=== PATIENT | male | born 1975 | race Caucasian/White ===

== ENCOUNTER 2019-10-06 21:55 | Emergency (ER) | payer BC, SELFPAY ==
--- NOTE | 2019-10-06 21:59 | ED.EYEPROB ---
HPI - Eye Problem General Chief complaint: Eye Problems Stated complaint: something in his right eye Time Seen by Provider: 10/06/19 21:59 Source: patient and family Mode of arrival: Ambulatory Limitations: no limitations History of Present Illness HPI Narrative: 44-year-old male nonsmoker with history of hypertension and hyperlipidemia presents with his in the chief complaint of a foreign body in his right eye. He was grinding metal while wearing safety glasses earlier this afternoon when he felt something enter his eye. He has no pain but does have some irritation and drainage. He has tried multiple attempts at irrigating at home though unsuccessfully. He does not know when his last tetanus shot was. He does not wear corrective glasses or contacts. He denies any blurred or double vision chief complaint: foreign body Onset (ago): hour(s) Onset description: sudden Duration: constant Location: right eye Eye Symptoms: foreign body sensation Place: home Mechanism: direct trauma and occurred while hammering/grinding Severity: mild Associated symptoms: none Treatments Prior to Arrival: irrigated eye Related Data Patient tetanus UTD: No Home Medications Medication Instructions Recorded Confirmed aspirin [Aspir-81] 81 mg PO DAILY 10/06/19 10/06/19 atorvastatin 10 mg PO DAILY 10/06/19 10/06/19 losartan 50 mg PO DAILY 10/06/19 10/06/19 Allergies Allergy/AdvReac Type Severity Reaction Status Date / Time Sulfa (Sulfonamide Allergy Swelling Verified 10/06/19 22:05 Antibiotics) of Lip/Tongue/Throat Review of Systems Constitutional Constitutional: Denies chills, Denies fatigue, Denies fever(s), Denies frequent falls, Denies lethargy and Denies weakness Eyes Eyes: Denies change in vision, Denies eye discharge, Reports irritation and Denies loss of vision ENT Ears, Nose, Mouth, and Throat: Denies change in voice, Denies dizziness, Denies neck pain, Denies sore throat and Denies throat swelling Cardiovascular Cardiovascular: Denies chest pain, Denies irregular heart rhythm, Denies lightheadedness, Denies palpitations, Denies dyspnea, Denies dyspnea on exertion and Denies orthopnea Respiratory Respiratory: Denies cough, Denies dyspnea, Denies dyspnea on exertion and Denies wheezing Gastrointestinal Gastrointestinal: Denies abdominal pain, Denies change in bowel habits, Denies diarrhea, Denies nausea and Denies vomiting Musculoskeletal Musculoskeletal: Denies neck pain and Denies numbness Integumentary/Breasts Skin/Breast: Denies pruritus, Denies erythema, Denies rash and Denies wounds Neurologic Neurologic: Denies behavioral changes, Denies confusion, Denies dizziness, Denies frequent falls, Denies loss of vision, Denies numbness and Denies weakness Psychiatric Psychiatric: Denies anxiety, Denies behavioral changes, Denies confusion, Denies depression, Denies homicidal ideation and Denies suicidal ideation Endocrine Endocrine: Denies fatigue, Denies flushing and Denies palpitations Hematologic/Lymphatic Hematologic/Lymphatic: Denies easy bruising Allergic/Immunologic Allergic/Immunologic: Denies urticaria, Denies throat swelling and Denies wheezing Patient History Social History Smoking Status: Never smoker Smoking Status: Never smoker alcohol intake frequency: 0-2 drinks per day Substance Use Type: does not use Exam Narrative Exam Narrative: GENERAL: [44] year old patient appears stated age. Well-nourished, well-developed patient, in mild distress. HEAD: Atraumatic. Normocephalic. EYES: Foreign body visualized with use of Wood's lamp at the 5 o'clock position overlying the iris. Upper lid mike id and no additional foreign body noted. Patient had a complete resolution of symptoms with use of proparacaine. Unable to remove metallic foreign body with cotton swab, easily removed with blunt needle. No rust ring noted. Fluorescein used with UV lamp and a small corneal abrasion noted underlying the location of where the foreign body was. No other uptake appreciated. Pupils equal round and reactive. Extraocular motions intact. No scleral icterus. No injection or drainage. ENT: Nose without bleeding, purulent drainage. Throat without erythema, tonsillar hypertrophy or exudate. Airway patent. NECK: Trachea midline. Non tender CARDIOVASCULAR: Regular rate and rhythm without murmurs, gallops, or rubs. RESPIRATORY: Clear to auscultation. Breath sounds equal bilaterally. No wheezes, rales, or rhonchi. GASTROINTESTINAL: Abdomen soft, non-tender, nondistended. EXTREMITIES: No edema or joint tenderness. BACK: Nontender without deformity or crepitance. No flank tenderness. NEURO: AOx3. SKIN: No rash or erythema of visible areas Initial Vital Signs Initial Vital Signs: Vital Signs Temperature 98.2 F 10/06/19 22:02 Pulse Rate 78 10/06/19 22:02 Respiratory Rate 16 10/06/19 22:02 Blood Pressure 157/67 H 10/06/19 22:02 Pulse Oximetry 98 10/06/19 22:02 Course Orders Ordered: Discontinued Medications Diphtheria/Tetanus/Acell Pertussis (Adacel) 0.5 ml IM .ONCE ONE Stop: 10/06/19 22:37 Last Admin: 10/06/19 22:48 Dose: 0.5 ml Documented by: MALATHI Fluorescein Sodium (Ful-Marina) 1 mg EYE-RIGHT NOW ONE Stop: 10/06/19 22:00 Last Admin: 10/06/19 22:10 Dose: 1 mg Documented by: MALATHI Ofloxacin (Ocuflox) 1 bottle MISC SEEINSTR ONE Stop: 10/06/19 22:38 Last Admin: 10/06/19 22:47 Dose: 1 drop Documented by: MALATHI Proparacaine HCl (Parcaine 0.5% Ophth Jazmín) 1 drops EYE-RIGHT NOW ONE Stop: 10/06/19 22:00 Last Admin: 10/06/19 22:10 Dose: 1 drop Documented by: MALATHI Vital Signs Vital signs: Vital Signs - 8 hr 10/06/19 22:02 Temperature 98.2 F Pulse Rate 78 Respiratory Rate 16 Blood Pressure 157/67 H Pulse Oximetry 98 Discharge Plan Departure Clinical Impression: Corneal abrasion Qualifiers: Encounter type: initial encounter Laterality: right Qualified Code(s): S05.01XA - Injury of conjunctiva and corneal abrasion without foreign body, right eye, initial encounter Foreign body in eye Qualifiers: Encounter type: initial encounter Laterality: right Qualified Code(s): T15.91XA - Foreign body on external eye, part unspecified, right eye, initial encounter Instructions: DI for Corneal Foreign Body-Eye Activity Restrictions/Additional Instructions: *You have been diagnosed with [metallic foreign body right eye with small corneal abrasion] *What to do: *Take medications as directed *Follow up with your africana studies professor in 2-3 days, call for an appointment. Let them know you were seen in the Emergency Department and that we ask that you be seen in follow up *Return to ER if you should have any new, worsening or concerning symptoms Prescriptions: No Action atorvastatin 10 mg tablet 10 mg PO DAILY RF: 0 losartan 50 mg tablet 50 mg PO DAILY RF: 0 aspirin [Aspir-81] 81 mg Tablet,Delayed Release (Dr/Ec) 81 mg PO DAILY RF: 0 Referrals: Jaydon Bolivar MD [Primary Care Provider] -
[2019-10-06 22:02] VITALS: BP 157/67; PULSE 78; RESP 16; TEMP 36.8; O2SAT 98
[2019-10-06] MEDS: PROPARACAINE 0.5% OPHTH SOL 1 DROPS EYE-RIGHT (22:10)
[2019-10-06] MEDS: FLUORESCEIN 1 MG STRIP EYE-RIGHT (22:10)
[2019-10-06] MEDS: OFLOXACIN 0.3% OPHTH PREPACK 1 BOTTLE MISC (22:47)
[2019-10-06] MEDS: TET,DIPH,PERTUSS(ACELL),VAC/PF 0.5 ML SYRINGE IM (22:48)
== END 2019-10-06 22:55 | disposition home or self-care (01) ==
PROVIDERS: Emergency Provider Emergency Medicine; Family Provider Family Medicine; PCP Family Medicine
DX: S05.01XA Injury of conjunctiva and corneal abrasion without foreign body, right eye, initial encounter (principal); T15.91XA Foreign body on external eye, part unspecified, right eye, initial encounter; Z23 Encounter for immunization
CPT/HCPCS: 90471; 99283; 90715

== ENCOUNTER → 2020-02-12 08:55 | Outpatient (CLI) | payer BC, SELFPAY ==
[2020-02-12 10:36] LABS: Add Manual Diff / Slide Review NO; Basophils Absolute Auto 0 /uL (0-100); Basophils Percent Auto 0.4 % (0-2); Eosinophils Absolute Auto 100 /uL (0-450); Eosinophils Percent Auto 1.9 % (2-4); Hematocrit 42.6 % (41-53); Hemoglobin 14.6 g/dL (13.5-17.5); Lymphocytes Absolute Auto 1200 /uL (1100-4500); Lymphocytes Percent Auto 23.5 % (25-40); Mean Corpuscular HGB Conc 34.2 % (30-36); Mean Corpuscular Hemoglobin 30.3 PG (26-34); Mean Corpuscular Volume 88.7 fL (80-100); Monocytes Absolute Auto 400 /uL (0-900); Monocytes Percent Auto 8.4 % (3-14); Neutrophils Absolute Auto 3300 /uL (1500-7000); Neutrophils Percent Auto 65.8 % (50-75); Platelet Count 190 X10^3/uL (150-400)
[2020-02-12 10:42] LABS: Alanine Aminotransferase 29 IU/L (<50); Albumin 4.6 g/dL (3.5-5.0); Albumin Globulin Ratio 1.4 (1.0-2.8); Alkaline Phosphatase 53 U/L (38-126); Aspartate Aminotransferase 28 IU/L (17-59); BUN Creatinine Ratio 16.9 (6-22); Bilirubin Total 0.9 mg/dL (0.2-1.3); Blood Urea Nitrogen 14 mg/dL (9-20); Calcium 9.1 mg/dL (8.4-10.2); Carbon Dioxide 31 mmol/L (22-32); Chloride 104 mmol/L (98-107); Cholesterol 171 mg/dL (140-199); Estimated Glomerular Filt Rate > 60.0 mL/min (>60); Globulin 3.2 g/dL (1.7-4.1); Glucose 100 mg/dL (70-100); HDL Cholesterol 31 mg/dL (40-60); HEMOLYSIS < 15 (0-50); LDL Cholesterol Calculated 125 mg/dL (<100); Potassium 4.3 mmol/L (3.4-5.1); Sodium 141 mmol/L (137-145); Total Protein 7.8 g/dL (6.3-8.2); Triglycerides 76 mg/dL (35-150)
[2020-02-12 11:18] LABS: Thyroid Stimulating Hormone 1.25 uIU/mL (0.47-4.68)
== END ==
PROVIDERS: Family Provider Family Medicine; PCP Student in an Organized Health Care Education/Training Program; Referring Provider Student in an Organized Health Care Education/Training Program; Visit Provider Student in an Organized Health Care Education/Training Program
DX: Z00.00 Encounter for general adult medical examination without abnormal findings (principal); E78.5 Hyperlipidemia, unspecified; I10 Essential (primary) hypertension
CPT/HCPCS: 36415; 80053; 80061; 84443; 85025

== ENCOUNTER 2022-10-08 07:48 | Day surgery (SDC) | payer BC, SELFPAY ==
--- NOTE | 2022-10-08 | PATH_ITS ---
[facility] Accession Number: [id number] No. of containers..02 Tissue . 01 Material submitted: . PART A: colon - CECAL POLYP X2 PART B: rectum - RECTAL POLYP . 01 Diagnosis: A. Cecal Polyps: Sessile serrated adenoma x1. Tubular adenoma x1. . B. Rectal Polyp: Hyperplastic polyp. MRV 10/15/2022 1329 Local . 01 Electronically signed: . Gael Sharpe MD, PhD, Pathologist NPI- [id number] . 01 Gross description: . Part A: CECAL POLYP X2: Received in formalin are 3 fragment(s) of dangelo, soft tissue measuring 0.3 x 0.2 x 0.2 cm to 0.2 x 0.2 x 0.1 cm submitted entirely in 1 cassette(s) Part B: RECTAL POLYP: Received in formalin are 2 fragment(s) of dangelo, soft tissue measuring 0.3 x 0.3 x 0.2 cm to 0.3 x 0.2 x 0.1 cm submitted entirely in 1 cassette(s) /[facility] 10/13/2022 1555 Local . 01 Pathologist provided ICD-10: D12.0, K62.1 . 01 CPT . 883371, 860909 Specimen Comment: A courtesy copy of this report has been sent to [facility] Performed at: 01 [facility] [address] [place] [address], [place], [place] [id number] MD Biju Dunn MD Phone: [phone]
[2022-10-08 08:09] VITALS: BP 151/89; PULSE 80; RESP 17; TEMP 36.2; O2SAT 97; BMI 36.9
[2022-10-08] MEDS: LACTATED RINGERS 1,000 ML 100 ML IV (08:16)
--- NOTE | 2022-10-08 08:38 | PM.HP.1 ---
History of Present Illness History of Present Illness Date Patient Seen: 10/08/22 Time Patient Seen: 08:38 [place] [facility] [place]ative: 47 yo male presents today for his 1st screening colonoscopy. He has no family history of colon cancer. He does have 2 brothers who have had polyps and his older brother in particular had so many polyps that his doctor advised him to let his siblings know about that. He otherwise is having no concerning symptoms no bleeding no change in bowel habits. PFS Surgical History (Updated 10/08/22 @ 08:08 by Dilip Roberson RN) S/P hernia surgery Social History household members: spouse Smoking Status: Never smoker Meds Home Medications and Allergies Home Medications Medication Instructions Recorded Confirmed Type atorvastatin 10 mg tablet 10 mg PO DAILY 10/06/19 10/08/22 History losartan 50 mg tablet 50 mg PO DAILY 10/06/19 10/08/22 History Allergies Allergy/AdvReac Type Severity Reaction Status Date / Time Sulfa (Sulfonamide Allergy Swelling Verified 10/06/19 22:05 Antibiotics) of Lip/Tongue/Throat Exam Vital Signs (past 8 hours): - 10/08/22 08:09 Temperature 97.2 F L Pulse Rate 80 Respiratory Rate 17 Blood Pressure 151/89 H Pulse Oximetry 97 Oxygen Delivery Method Room Air Oxygen Delivery Method Room Air Const General: cooperative, healthy appearing and comfortable HENNV Head: normal to inspection Eyes General: appearance normal, both eyes and all related structures Resp Effort & Inspection: normal respiratory effort and able to speak in complete sentences Cardio Pulses: radial pulses present GI Palpation: soft and No tender Other: BMI 36 Assessment & Plan Assessment and plan (1) Family history of polyps in the colon: Status: Acute (2) Screening for colon cancer: Status: Acute Assessment & Plan narrative: Presents today for screening colonoscopy I discussed the risks benefits and alternatives including but not limited to perforation of the colon and an incomplete exam he fully understands these risks and would like to proceed.
[2022-10-08 09:27] VITALS: BP 130/85; PULSE 80; RESP 16; TEMP 36.1; O2SAT 93
--- NOTE | 2022-10-08 09:30 | P.OP.COLON_ITS ---
Operative Date/Time/Diagnoses Date of procedure: 10/08/22 Time of procedure: 09:31 Pre-op diagnosis: Family history of polyps, screening for colon cancer Post-op diagnosis: same Procedure & Clinicians Study performed: Colonoscopy and biopsy Same procedure as scheduled: Yes Indications: Family history of polyps and screening for colon cancer Surgeon: Olena Ochoa Procedure Notes Procedure in detail: Patient was taken to the endoscopy suite and placed in a left lateral decubitus position. A time-out was performed. With the help of anesthesiologist conscious sedation was induced and maintained throughout procedure. A digital rectal exam was performed there were no masses or strictures. The prostate gland was smooth normal. A colonoscope was introduced into the anal canal and advanced through to the cecum. The prep was excellent [place] bowel prep score of 3. A photograph of the appendiceal orifice was obtained. There were multiple large diverticula in the sigmoid colon. And a few small right-sided diverticula as well. There were 2 small polyps in the cecum. A photograph was obtained of 1 of the 2 cecal polyps. Both were removed in totality. There was a 3rd and final small polyp in the rectum which was biopsied and removed with Jumbo forceps as well. The scope was then retroflexed and the internal hemorrhoid piles appeared normal. A photograph was obtained. Total withdrawal time was 19 minutes. Findings: divertiulosis and polyp(s) (X3 all small) Specimen(s): other (1. Cecal polyps x2 2. Rectal) Complications: none Post-procedure Plan for aftercare: Follow-up recommendation will be based on the pathology of the polyps. If you have 3 tubular adenomas a 5 year follow-up is recommended, where as if all of polyps are hyperplastic or benign a 10 year follow-up is appropriate. Therefore I anticipate your follow-up recommendation will be between 5-10 years. You will receive a letter with the final pathology and final follow-up recommendation and please do not hesitate to call the office if there are any questions concerns.
[2022-10-08 09:32] VITALS: BP 144/98; PULSE 83; RESP 18; O2SAT 94
[2022-10-08 09:37] VITALS: BP 129/94; PULSE 84; RESP 16; O2SAT 96
[2022-10-08 09:42] VITALS: BP 127/89; PULSE 80; RESP 18; TEMP 36.3; O2SAT 97
[2022-10-08 09:47] VITALS: BP 133/99; PULSE 77; RESP 18; O2SAT 97
== END 2022-10-08 10:15 | disposition home or self-care (01) ==
PROVIDERS: PCP Family Medicine; Referring Provider Surgery; Visit Provider Surgery
PROC: 0DJD8ZZ Inspection of Lower Intestinal Tract, Via Natural or Artificial Opening Endoscopic (ICD-10-PCS; CPT 45378; principal; 2022-10-08 08:45)
DX: Z12.11 Encounter for screening for malignant neoplasm of colon (principal); Z83.71 Family history of colonic polyps; K57.30 Diverticulosis of large intestine without perforation or abscess without bleeding
CPT/HCPCS: 45380; J2704